=== PATIENT | female | born 1970 | race Caucasian/White ===

== ENCOUNTER → 2016-12-23 | Outpatient (CLI) | payer OTHER ==
--- NOTE | 2016-12-23 09:01 | WOMENS IMAGING REPORT ---
EXAM DESCRIPTION: BILAT SCREENING MAMMO W/CAD COMPLETED DATE/TIME: 12/23/2016 8:42 am REASON FOR STUDY: Z12.31, ROUTINE SCREENING MAMMO Z12.31 ENCNTR SCREEN MAMMOGRAM FOR MALIGNANT NEOP LASM OF YONIS COMPARISON: Multiple since 2011 TECHNIQUE: Standard craniocaudal and mediolateral oblique views of each breast recorded using digita l acquisition. LIMITATIONS: None. FINDINGS: No masses, calcifications or architectural distortion. No areas of suspicion. Read with the assistance of CAD. .[facility] - R2 Cenova Version 1.3 .[facility] - R2 Cenova Version 1.3 .[facility] - R2 Cenova Version 2.4 .[facility] [place] Cenova Version 2.4 .[facility] - R2 Hearing Instrument Specialist Version 9.2 BREAST DENSITY: c. The breasts are heterogeneously dense, which may obscure small masses. BIRAD: 1 NEGATIVE RECOMMENDATION: ROUTINE SCREENING COMMENT: PATIENT NOTIFIED BY LETTER. The [employer] recommends an annual screening mammogram for women aged 40 years or over. Each patient will receive a reminder prior to the anniversary date of her mammogram. The [employer] ([employer]) has developed recommendations for screening MRI of the breast s in certain patient populations, to be used in conjunction with mammography. Breast MRI surveillanc e may be appropriate for women with more than 20% lifetime risk of developing breast cancer as deter mined by genetic testing, significant family history of the disease, or history of mantle radiation f or Hodgkins Disease. ACR Practice Guidelines 2008. TECHNICAL DOCUMENTATION: FINDING NUMBER: (1) ASSESSMENT: (1) JOB ID: [id number] [employer]- All Rights Reserved
== END ==
LOC: WI 07:59
PROVIDERS: ATTEND Family Medicine
DX: Z12.31 Encounter for screening mammogram for malignant neoplasm of breast (principal)
CPT/HCPCS: 77067; G0202

== ENCOUNTER 2016-12-26 08:15 | Day surgery (SDC) | payer OTHER ==
[~2016-12-26 08:15] MED LIST: PROPOFOL INJ 200 MG/20 ML VIAL IV ONE
[2016-12-26 09:32] VITALS: BP 118/64
--- NOTE | 2016-12-26 14:09 | Operative Report ---
Operative Report DATE OF SURGERY: 12/26/16 Operative Report: The risks, benefits and alternatives of the procedure including risks of bleeding, perforation requiring surgery are explained to the patient detail and informed consents obtained. Patient is taken back to the endoscopy suite and placed in a left lateral decubital position. Timeout is called. Propofol medication is administered. A rectal examination is done which did not reveal any masses, tears or fissures. An Olympus was scope is inserted into the patient's rectum. The scope was then gradually advanced all the way to the cecum. The cecum as identified by the usual anatomical landmarks including the ileocecal valve as well as the appendiceal office. Photodocumentation is obtained. The scope was then sequentially pulled back via the various segments of the colon including the ascending colon, hepatic flexure, transverse colon, splenic flexure, descending colon and finally into the rectosigmoid portions of the colon. Retroflexion maneuver is performed. PREOPERATIVE DIAGNOSIS: Colorectal cancer screening, family history of colorectal cancer POSTOPERATIVE DIAGNOSIS: Colon polyp in the sigmoid is removed via biopsy forceps. Internal hemorrhoids. No evidence of AVMs, diverticulosis. No obstruction noted OPERATION: Colonoscopy with biopsy SURGEON: DENIS RAINEY ANESTHESIA: LMAC TISSUE REMOVED OR ALTERED: Colon specimens obtained as described above COMPLICATIONS: None. ESTIMATED BLOOD LOSS: none. INTRAOPERATIVE FINDINGS: As described above. PROCEDURE: Patient tolerated the procedure well. No postprocedure complications are noted. Patient is discharged in good condition. Discharge date 12/26/2016. Discharge diet: Regular. Discharge activity: Regular. Patient does have a 2-3 week follow-up to discuss findings. Surveillance colonoscopy in 3-5 years. We'll await on biopsies. Patient is instructed to call the office or proceed to the emergency room if any further problems or questions.
== END 2016-12-26 09:30 | disposition home or self-care (01) ==
LOC: END 08:15
PROVIDERS: ATTEND Internal Medicine Gastroenterology
PROC: 0DBN8ZX Excision of Sigmoid Colon, Via Natural or Artificial Opening Endoscopic, Diagnostic (ICD-10-PCS; principal; 2016-12-26 09:30)
DX: Z12.11 Encounter for screening for malignant neoplasm of colon (principal); D12.5 Benign neoplasm of sigmoid colon; Z80.0 Family history of malignant neoplasm of digestive organs; K64.8 Other hemorrhoids; G43.909 Migraine, unspecified, not intractable, without status migrainosus; Z79.899 Other long term (current) drug therapy; Z79.82 Long term (current) use of aspirin
CPT/HCPCS: 45380; 88305 ×2; J2704; 810

== ENCOUNTER 2017-02-16 10:55 | Day surgery (SDC) | payer OTHER ==
[~2017-02-16 10:55] MED LIST changes: +DIPHENHYDRAMINE HCL 50 MG/ML VIAL ONE; +EPINEPHRINE INJ 1 MG/10 ML DISP.SYRIN ONE; +FLUMAZENIL INJ 0.5 MG/5 ML VIAL IV ONE; +GLUCAGON,HUMAN RECOMB 1 MG INJ ONE; +MIDAZOLAM 2 MG/2 ML INJ ONE; +NALOXONE HCL INJ/PF 0.4 MG/1 ML SDV ONE; +ONDANSETRON HCL INJ/PF 4 MG/2 ML SDV ONE; +PROMETHAZINE HCL INJ 25 MG/1 ML VIAL ONE; -PROPOFOL INJ 200 MG/20 ML VIAL IV ONE
[2017-02-16] MEDS: MIDAZOLAM 2 MG/2 ML INJ ONE ×2 (12:15→12:19)
[2017-02-16] MEDS: FENTANYL CITRATE INJ/PF 100 MCG/2 ML AMPUL ONE ×2 (12:17→12:20)
[2017-02-16 13:29] VITALS: BP 115/67
--- NOTE | 2017-02-16 13:34 | Operative Report ---
Operative Report DATE OF SURGERY: 02/16/17 Operative Report: The risks benefits and alternatives of the procedure explained to the patient in detail and informed consent is obtained that GIF Olympus video scope was inserted into the patient's mouth and hypopharynx the esophagus is identified intubated and insufflated the scope was then advanced through the esophagus stomach and duodenum retroflexion maneuver is done the esophagus stomach and first and second portions of the duodenum examined PREOPERATIVE DIAGNOSIS: Gastric pain, dysphagia POSTOPERATIVE DIAGNOSIS: Questionable Schatzki's ring. Gastritis. Esophagitis status post biopsy rule out Maurice's esophagus OPERATION: EGD with biopsy SURGEON: DENIS RAINEY ANESTHESIA: Moderate Sedation - 4 mg of Versed, 125 g of fentanyl. Conscious sedation monitoring time 15 minutes. TISSUE REMOVED OR ALTERED: Gastric mucosal specimen obtained rule out Helicobacter pylori. Esophageal mucosal specimen obtained rule out Maurice's esophagus COMPLICATIONS: None. ESTIMATED BLOOD LOSS: none. INTRAOPERATIVE FINDINGS: As described above. PROCEDURE: Patient tolerated the procedure well. No immediate postprocedure complications are noted. Patient discharged in good condition. Discharge date 02/16/2017. Discharge diet: Regular. Discharge activity: Regular. 2-3 week follow-up to discuss findings. Await on biopsies. Patient is instructed to call the office or proceed to the emergency room should there be any further problems or questions.
== END 2017-02-16 13:30 | disposition home or self-care (01) ==
LOC: END 10:55
PROVIDERS: ATTEND Internal Medicine Gastroenterology
PROC: 0DB38ZX Excision of Lower Esophagus, Via Natural or Artificial Opening Endoscopic, Diagnostic (ICD-10-PCS; 2017-02-16)
PROC: 0DB68ZX Excision of Stomach, Via Natural or Artificial Opening Endoscopic, Diagnostic (ICD-10-PCS; principal; 2017-02-16 11:30)
DX: K21.0 Gastro-esophageal reflux disease with esophagitis (principal); G43.909 Migraine, unspecified, not intractable, without status migrainosus; Z80.0 Family history of malignant neoplasm of digestive organs; J30.9 Allergic rhinitis, unspecified; Z79.899 Other long term (current) drug therapy; Z79.82 Long term (current) use of aspirin
CPT/HCPCS: 43239; 88342 ×2; 88305 ×2; J2250; J3010; J0171; J1200; J1610; J2310; J2405; J2550; J3490